=== PATIENT | female | born 1985 | race Caucasian/White ===

== ENCOUNTER → 2016-05-12 | Outpatient (CLI) | payer MEDICAID | LOC: CIMAGING 13:07 | PROVIDERS: ATTEND Obstetrics & Gynecology | DX: N64.59 Other signs and symptoms in breast (principal) | CPT/HCPCS: 76641-PO ==

== ENCOUNTER → 2017-01-15 | Outpatient (CLI) | payer MEDICAID | LOC: FIMAGING 06:52 | PROVIDERS: ATTEND Orthopaedic Surgery | DX: S46.811A Strain of other muscles, fascia and tendons at shoulder and upper arm level, right arm, initial encounter (principal) ==

== ENCOUNTER 2017-04-24 05:47 | Day surgery (SDC) | payer MEDICAID ==
--- NOTE | 2017-04-23 16:07 | GHP ---
[f rep st] PREOP HISTORY AND PHYSICAL DATE OF ADMISSION: 04/24/2017 DATE OF PLANNED PROCEDURE: 04/24/2017. PLANNED PROCEDURE: Right shoulder subacromial decompression. HPI: This is a 31-year-old female, who has had long-standing right shoulder pain. This has failed t o improve with physical therapy, cortisone injections, and time. MRI was obtained, which showed impi ngement anatomy and an inflamed rotator cuff. Decision made to proceed with an arthroscopic rotator cuff debridement and a subacromial decompression. PRIOR MEDICAL HISTORY: None. SURGICAL HISTORY: Ankle arthroscopy with Brostrom repair. MEDICATIONS: None. ALLERGIES: None. SOCIAL HISTORY: She is a nursing clinical director. Does not smoke. Occasional alcohol use. REVIEW OF SYSTEMS: Unremarkable. PHYSICAL EXAM: Healthy-appearing 31-year-old female. VITAL SIGNS: She is 5 feet 9 inches tall, farida ghs 145 pounds. Blood pressure is 120/77, heart rate 76, respiratory rate 14 on room air. Alert and oriented x3. HEENT: Normocephalic, atraumatic. Extraocular muscles intact. NECK: Supple. There is no lymphadenopathy. No JVD. CHEST: Clear to auscultation. CARDIOVASCULAR: Regular rate and r hythm. ABDOMEN: Soft, nontender, nondistended. MUSCULOSKELETAL: Right shoulder shows no obvious a trophy. There is a little tenderness over the AC joint and anteriorly over the rotator interval and long head of the biceps. She has full extension, 160 degrees of forward flexion, 60 degrees external rotation, internal rotation, she can get her hand to L1. Supraspinatus and infraspinatus strength b oth 4/5, limited by pain. Subscapularis 4+/5. She has a positive impingement sign. Negative cross- body adduction sign. 1+ sulcus sign. Negative apprehension sign. IMAGING: MRI is reviewed. Does show some mild-bursal sided fraying of the cuff, no full-thickness t ear. I do not detect a labral tear. There is a type 2 acromion with impingement anatomy. ASSESSMENT: Right shoulder impingement. PLAN: I recommend proceeding with an arthroscopic labral rotator cuff debridement, subacromial decom pression. Risks and benefits were described including continued pain, postoperative stiffness. She understands these risks, wished to proceed. [facility] /[id number]/MODL
[2017-04-24] MEDS ORDERED: ceFAZolin 2 GM/SWFI 2 GM/20 ML SYR IVP ONE (06:11)
[2017-04-24 06:22] VITALS: PULSE 70
--- NOTE | 2017-04-24 06:53 | PDHPUP ---
History & Physical Update H&P update statement: This history and physical update is based on an assessment of the patient which was completed after admission or registration (within 24 hours), but prior to the surgery/procedure. H&P update: H&P reviewed & patient examined, no change in patient's condition since H&P completed
[2017-04-24] MEDS ORDERED: BUPIVACAINE/EPI 0.5% 30 ML SDV ONE (06:59)
[2017-04-24] MEDS ORDERED: LIDO/EPI 1% **for epidural** 30 ML SDV ONE (07:00)
--- NOTE | 2017-04-24 07:02 | PDANEPAE ---
ANE History of Present Illness Patient presents for R shoulder decompression ANE Past Medical History - Cardiovascular History Hx Hypertension: No Hx Arrhythmias: Yes Hx Chest Pain: No Hx Coronary Artery / Peripheral Vascular Disease: No Hx CHF / Valvular Disease: No Hx Palpitations: No Cardiovascular History Comment: occ pvc's- has been worked up by cards - Pulmonary History Hx COPD: No Hx Asthma/Reactive Airway Disease: No Hx Recent Upper Respiratory Infection: No Hx Oxygen in Use at Home: No Hx Sleep Apnea: No Sleep Apnea Screening Result - Last Documented: Negative - Neurologic History Hx Cerebrovascular Accident: No Hx Seizures: No Hx Dementia: No - Endocrine History Hx Diabetes: No - Renal History Hx Renal Disorders: No - Liver History Hx Hepatic Disorders: No - Neurological & Psychiatric Hx Hx Neurological and Psychiatric Disorders: No - Cancer History Hx Cancer: No - Congenital Disorder History Hx Congenital Disorders: No - GI History Hx Gastrointestinal Disorders: No - Other Health History Other Health History: none - Chronic Pain History Chronic Pain: No - Surgical History Prior Surgeries: right ankle reconstruction. tonsillectomy. optic nerve surgery x2 ANE Review of Systems Review of Systems: - Exercise capacity METS (RN): 4 METS ANE Patient History - Allergies Allergies/Adverse Reactions: No Known Allergies Allergy (Verified 04/24/17 06:42) - Home Medications Home medications: home medication list seen and reviewed Home Medications: NK [No Known Home Meds] 04/16/17 [Last Taken Unknown] - NPO status NPO Status: no food or drink >8 hours NPO Since - Liquids (Date): 04/23/17 NPO Since - Liquids (Time): 20:30 NPO Since - Solids (Date): 04/23/17 NPO Since - Solids (Time): 19:30 - Anes Hx Anes Hx: no prior problems, post operative nausea, post operative nausea and vomiting - Smoking Hx Smoking Status: Never smoked - Family Anes Hx Family Hx Anesthesia Complications: none ANE Labs/Vital Signs - Vital Signs Blood Pressure: 103/67 Heart Rate: 70 Respiratory Rate: 16 O2 Sat (%): 94 Height: 175.26 cm Weight: 68.039 kg ANE Physical Exam - Airway Neck exam: FROM Mallampati Score: Class 2 Mouth exam: normal dental/mouth exam - Pulmonary Pulmonary: no respiratory distress - Cardiovascular Cardiovascular: regular rate and rhythym - ASA Status ASA Status: I ANE Anesthesia Plan Anesthesia Plan: GA w LMA (RBA discussed)
[2017-04-24] MEDS ORDERED: fentaNYL 100 MCG/2 ML INJ ONE ×2 (07:06→07:55)
[2017-04-24] MEDS ORDERED: PROPOFOL 200 MG/20 ML VIAL ONE (07:07)
[2017-04-24] MEDS ORDERED: PROPOFOL/EMULSION 500 MG/50 ML BOTTLE IV ONE (07:07)
[2017-04-24] MEDS ORDERED: LIDOCAINE 2% 5 ML SDV ONE (07:12)
[2017-04-24] MEDS ORDERED: LR 1,000 ML IV ONE (07:12)
[2017-04-24] MEDS ORDERED: ONDANSETRON 4 MG/2 ML VIAL ONE (07:33)
[2017-04-24] MEDS ORDERED: DEXAMETHASONE 4 MG/ML VIAL ONE (07:33)
[2017-04-24] MEDS ORDERED: OXYCODONE/APAP 5/325 TAB PO PRN (08:15)
[2017-04-24] MEDS ORDERED: ONDANSETRON 4 MG/2 ML VIAL IVP PRN (08:15)
[2017-04-24] MEDS ORDERED: NALOXONE HCL 0.4 MG/ML INJ IVP PRN (08:15)
[2017-04-24] MEDS ORDERED: fentaNYL 100 MCG/2 ML INJ IVP PRN (08:15)
[2017-04-24] MEDS ORDERED: HYDROCODONE/APAP 5/325 TAB PO PRN (08:15)
[2017-04-24] MEDS ORDERED: LR 500 ML IV PRN (08:15)
--- NOTE | 2017-04-24 08:15 | POSTOPPROG ---
Post Op Note Date of Operation: 04/24/17 Surgeon: Adis Cali Vice President Media Relations: NINI Mcbride Anesthesia: GET(General Endotracheal) Pre-op Diagnosis: RT shoulder impingement Post-op Diagnosis: same Procedure: 1. Arthroscopic labral debridement 2. SAD Inf/Abcess present in the surg proc area at time of surgery?: No EBL: Minimal Complications: none
--- NOTE | 2017-04-24 08:50 | POSTANESTH ---
Post Anesthetic Evaluation Cardiovascular Status: Similar to Pre-Op Cond Respiratory Status: Similar to Pre-op Cond. Level of Consciousness/Mental Status: Can Participate in Eval Pain Control: Adequate, Prn Tx Ordered Nausea/Vomiting Control: Adequate, Prn Tx Ordered Complications Possibly Related to Anesthesia: None Noted
[2017-04-24 09:16] VITALS: TEMP 97.5
--- NOTE | 2017-04-24 09:25 | GOP ---
[f rep st] OPERATIVE REPORT DATE OF OPERATION: 04/24/2017 SURGEON: Adis Clai MD C D STRIPPER: Stephen Dhaliwal. ANESTHESIA: General. PREOPERATIVE DIAGNOSIS: Right shoulder impingement. POSTOPERATIVE DIAGNOSIS: Right shoulder impingement. PROCEDURE PERFORMED: 1. Arthroscopic labral debridement. 2. Subacromial decompression. 3. Rotator cuff debridement. FINDINGS: DESCRIPTION OF PROCEDURE: After appropriate informed consent was obtained patient taken to the opera ting room, placed supine on the operating table. Time-out was performed. Patient was identified, co rrect site was identified. She received 2 g of Ancef preoperatively. Following the induction of gen eral endotracheal tube anesthesia she was positioned in the beach chair position with all bony promin ences well padded. Right upper extremity was prepped and draped usual sterile fashion. I instilled 30 mL 1% lidocaine with epinephrine and 30 mL of normal saline through the standard posterior portal. I made a small jacy incision and introduced the camera through the standard posterior portal and th en obtained an anterior portal under direct visualization and placed a 4.5 mm plastic working cannula through there. The labrum showed some mild tearing just anterior and inferior to the biceps tendon. There was also another area at approximately the 7 o'clock position posterior inferiorly that was t orn with a loose piece of tissue. This was debrided back with a motorized shaver. Looking at the un dersurface of the rotator cuff there was a small partial-thickness tear of the anterior fibers of the supraspinatus. I debrided this from the undersurface with the motorized shaver. Biceps tendon was intact. The remainder of the rotator cuff looked in good shape. The articular cartilage on the william ral head and the glenoid was also without injury. I repositioned the camera in the subacromial space and obtained a standard lateral portal under direct visualization. She had extensive synovitis and bursitis in that subacromial space. I debrided back with a motorized shaver and electrocautery dilcia kulkarni. The acromial side of the rotator cuff was in good shape without evidence of tearing. I debrided back the synovium and then performed a subacromial decompression with the motorized bur. Instruments were withdrawn. Portal incisions were closed with 2-0 nylon. I instilled 30 mL of 0.5% Marcaine wi th epinephrine in the shoulder joint. Sterile dressing and a sling were applied. Patient was awaken ed from anesthesia, taken to the recovery room in satisfactory condition. There were no immediate in traoperative complications. Stephen Dhaliwal's assistance was required throughout the entire case. COMPLICATIONS: None. DRAINS: None. HISTORY: This is a 31-year-old female, who had longstanding right shoulder pain that has failed to i mprove with conservative management including therapy and cortisone injections. Decision was made to proceed with a cuff debridement and a subacromial decompression. /[id number]/MODL
[2017-04-24 10:22] VITALS: BP 106/66; RESP 12; O2SAT 98
== END 2017-04-24 10:20 | disposition home or self-care (01) ==
LOC: FSGY 05:47
PROVIDERS: ATTEND Orthopaedic Surgery
PROC: 0LQ14ZZ Repair Right Shoulder Tendon, Percutaneous Endoscopic Approach (ICD-10-PCS; principal; 2017-04-24 07:15)
PROC: 0MB14ZZ Excision of Right Shoulder Bursa and Ligament, Percutaneous Endoscopic Approach (ICD-10-PCS; principal; 2017-04-24 07:15)
DX: M25.811 Other specified joint disorders, right shoulder (principal)
CPT/HCPCS: J0171; J0690; J1100; J2405; J2704; J3010

== ENCOUNTER → 2017-05-29 | Outpatient (CLI) | payer MEDICAID | LOC: FIMAGING 18:04 | PROVIDERS: ATTEND Orthopaedic Surgery | DX: M25.511 Pain in right shoulder (principal); Z98.890 Other specified postprocedural states ==

== ENCOUNTER 2017-08-09 03:38 | Observation (INO) | payer MEDICAID ==
[2017-08-09] MEDS ORDERED: NS 1,000 ML IV ONE (03:51)
--- NOTE | 2017-08-09 03:51 | EDPHY ---
H & P Stated Complaint: PALPITATION, STARTED YEST Time Seen by Provider: 08/09/17 03:42 HPI/ROS: HPI CHIEF COMPLAINT: Palpitations since yesterday. 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 She reports yesterday she felt some lightheadedness and some palpitations she thought her heart rate was low in the 40s yesterday she woke up around 230 this morning as her son woke up and she felt like her heart was racing with fast palpitations and lightheadedness. She did not have any chest pain or shortness of breath she denies any pleuritic pain. Denies recent illness, denies fever. She has not had any vomiting or diarrhea. She decided come the emergency room due the palpitations and lightheadedness. She currently does not feel them. Upon arrival to the emergency room she is noted to be in sinus rhythm a heart rate in the 60s, blood pressure 134/80 and pulse ox 98% on room air she is afebrile. Past Medical History: Denies significant medical history that she takes daily medications for Past Surgical History: Right shoulder surgery Social History: He denies drugs alcohol tobacco. Works as an adviser sales History: Denies any significant cardiovascular history in her family ROS REVIEW OF SYSTEMS: A comprehensive 10 point review of systems is otherwise negative aside from elements mentioned in the history of present illness. Exam Constitutional appears well nontoxic no acute distress, triage nursing summary reviewed, vital signs reviewed, awake/alert. Eyes normal conjunctivae and sclera, EOMI, PERRLA. HENT normal inspection, atraumatic, moist mucus membranes, no epistaxis, neck supple/ no meningismus, no raccoon eyes. Respiratory clear to auscultation bilaterally, normal breath sounds, no respiratory distress, no wheezing. Cardiovascular no murmur on exam, rate normal, regular rhythm, no murmur, no edema, distal pulses normal. Gastrointestinal soft, non-tender, no rebound, no guarding, normal bowel sounds, no distension, no pulsatile mass. Genitourinary no CVA tenderness. Musculoskeletal no midline vertebral tenderness, full range of motion, no calf swelling, no tenderness of extremities, no meningismus, good pulses, neurovascularly intact. Skin pink, warm, & dry, no rash, skin atraumatic. Neurologic awake, alert and oriented x 3, AAOx3, moves all 4 extremities equally, motor intact, sensory intact, CN II-XII intact, normal cerebellar, normal vision, normal speech. Psychiatric normal mood/affect. Heme/Lymph/Immune no lymphadenopathy. Differential diagnosis includes but is not limited to: Palpitations, cardiac arrhythmia, abnormal thyroid, electrolyte disturbance, dehydration, SVT, bradycardia ACS, atypical chest pain, pneumothorax, pneumonia, pulmonary embolism, aortic dissection, congestive heart failure, tumor, musculoskeletal pain, esophageal pain, GERD, peptic ulcer disease, pancreatitis Medical Decision Making: Plan for this patient IV establishment blood draw, check electrolytes, check magnesium, check EKG and chest x-ray, check thyroid, test and re-evaluate. Re-evaluation: EKG interpretation by me on record in [facility] system. Impression time of EKG 3:50 a.m., this is sinus rhythm rate of 67 there is no acute ischemia appreciated. No ST elevation no ST depression no significant T-wave abnormalities. No prolonged intervals. Unremarkable EKG. ED x-ray chest one view negative for acute cardiopulmonary disease. Patient been monitored here for multiple hours there has been no signs of cardiac arrhythmia on the monitor. Her current heart rate is 69, blood pressure 110/85, pulse ox 90% on room air. She has been resting comfortably she has no chest pain or shortness of breath. Her EKG is nonischemic no signs of cardiac arrhythmia. Her troponin is negative D-dimer is clean. Chest x-ray is unremarkable. I do recommend she follows up with Cardiology on outpatient basis for Holter monitor for palpitations. Additionally she understands return emergency room she develops worsening chest pain shortness of breath or fever. Source: Patient - Personal History LMP (Females 10-55): Unknown Current Tetanus Diphtheria and Acellular Pertussis (TDAP): Yes - Medical/Surgical History Hx Asthma: No Hx Chronic Respiratory Disease: No Hx Diabetes: No Hx Cardiac Disease: No Hx Renal Disease: No Hx Cirrhosis: No Hx Alcoholism: No Hx HIV/AIDS: No Hx Splenectomy or Spleen Trauma: No Other PMH: R SHOULDER RECONST, R ANKLE SX 2012, OPTIC NERVE SX PATRICIA 2010, TONSIL - Social History Smoking Status: Never smoked Constitutional: Initial Vital Signs Temperature (C) 36.8 C 05/27/18 03:42 Heart Rate 76 08/09/17 03:42 Respiratory Rate 16 08/09/17 03:42 Blood Pressure 135/80 H 08/09/17 03:42 O2 Sat (%) 98 08/09/17 03:42 O2 Delivery Mode Room Air Allergies/Adverse Reactions: No Known Allergies Allergy (Verified 04/24/17 06:42) Home Medications: Medication Instructions Recorded NK [No Known Home Meds] 04/16/17 Medical Decision Making - Data Points Laboratory Results: Laboratory Results 08/09/17 03:50 08/09/17 03:50 08/09/17 08/09/17 08/09/17 03:50 03:50 03:50 WBC RBC Hgb Hct MCV MCH MCHC RDW Plt Count MPV Neut % (Auto) Lymph % (Auto) Hardy % (Auto) Eos % (Auto) Baso % (Auto) Nucleat RBC Rel Count Absolute Neuts (auto) Absolute Lymphs (auto) Absolute Monos (auto) Absolute Eos (auto) Absolute Basos (auto) Absolute Nucleated RBC Immature Gran % Immature Gran # PT 12.9 SEC SEC (12.0-15.0) INR 0.95 (0.83-1.16) APTT 27.0 SEC SEC (23.0-38.0) D-Dimer < 0.27 ug/mLFEU ug/mLFEU (0.00-0.50) Sodium 143 mEq/L mEq/L (135-145) Potassium 3.8 mEq/L mEq/L (3.3-5.0) Chloride 104 mEq/L mEq/L (97-110) Carbon Dioxide 24 mEq/l mEq/l (22-31) Anion Gap 15 mEq/L mEq/L (8-16) BUN 10 mg/dL mg/dL (7-23) Creatinine 0.6 mg/dL mg/dL (0.6-1.0) Estimated GFR > 60 Glucose 92 mg/dL mg/dL (70-100) Calcium 8.7 mg/dL mg/dL (8.5-10.4) Magnesium 1.9 mg/dL mg/dL (1.6-2.3) Total Bilirubin 1.0 mg/dL mg/dL (0.1-1.4) Conjugated Bilirubin 0.3 mg/dL mg/dL (0.0-0.5) Unconjugated Bilirubin 0.7 mg/dL mg/dL (0.0-1.1) AST 17 IU/L IU/L (14-46) ALT 28 IU/L IU/L (9-52) Alkaline Phosphatase 43 IU/L IU/L (38-126) Creatine Kinase 80 IU/L IU/L (0-156) CK-MB (CK-2) Fraction 0.53 ng/mL ng/mL (0.00-3.19) Troponin I < 0.012 ng/mL ng/mL (0.000-0.034) NT-Pro-B Natriuret Pep 145 pg/mL H pg/mL (0-125) Total Protein 7.4 g/dL g/dL (6.3-8.2) Albumin 4.3 g/dL g/dL (3.5-5.0) Lipase 142 IU/L IU/L (23-300) TSH 2.320 uIU/mL uIU/mL (0.465-4.680) Beta HCG, Qual NEGATIVE 08/09/17 03:50 WBC 9.30 10^3/uL 10^3/uL (3.80-9.50) RBC 4.73 10^6/uL 10^6/uL (4.18-5.33) Hgb 14.3 g/dL g/dL (12.6-16.3) Hct 42.8 % % (38.0-47.0) MCV 90.5 fL fL (81.5-99.8) MCH 30.2 pg pg (27.9-34.1) MCHC 33.4 g/dL g/dL (32.4-36.7) RDW 13.5 % % (11.5-15.2) Plt Count 281 10^3/uL 10^3/uL (150-400) MPV 11.3 fL fL (8.7-11.7) Neut % (Auto) 48.7 % % (39.3-74.2) Lymph % (Auto) 36.1 % % (15.0-45.0) Hardy % (Auto) 9.9 % % (4.5-13.0) Eos % (Auto) 4.4 % % (0.6-7.6) Baso % (Auto) 0.8 % % (0.3-1.7) Nucleat RBC Rel Count 0.0 % % (0.0-0.2) Absolute Neuts (auto) 4.53 10^3/uL 10^3/uL (1.70-6.50) Absolute Lymphs (auto) 3.36 10^3/uL H 10^3/uL (1.00-3.00) Absolute Monos (auto) 0.92 10^3/uL H 10^3/uL (0.30-0.80) Absolute Eos (auto) 0.41 10^3/uL H 10^3/uL (0.03-0.40) Absolute Basos (auto) 0.07 10^3/uL 10^3/uL (0.02-0.10) Absolute Nucleated RBC 0.00 10^3/uL 10^3/uL (0-0.01) Immature Gran % 0.1 % % (0.0-1.1) Immature Gran # 0.01 10^3/uL 10^3/uL (0.00-0.10) PT INR APTT D-Dimer Sodium Potassium Chloride Carbon Dioxide Anion Gap BUN Creatinine Estimated GFR Glucose Calcium Magnesium Total Bilirubin Conjugated Bilirubin Unconjugated Bilirubin AST ALT Alkaline Phosphatase Creatine Kinase CK-MB (CK-2) Fraction Troponin I NT-Pro-B Natriuret Pep Total Protein Albumin Lipase TSH Beta HCG, Qual Medications Given: Discontinued Medications Sodium Chloride (Ns) 1,000 mls @ 0 mls/hr IV EDNOW ONE; Wide Open PRN Reason: Protocol Stop: 08/09/17 03:52 Last Admin: 08/09/17 03:56 Dose: 1,000 mls Departure - Departure Disposition: Home, Routine, Self-Care Clinical Impression: Heart palpitations Condition: Good Instructions: Heart Palpitations (ED) Additional Instructions: 1. Follow up with Cardiology. 2. Return to the emergency room if you have any worsening symptoms questions or concerns. Referrals: Monica Brown MD [Primary Care Provider] - As per Instructions Ward Vasquez MD [Medical Doctor] - As per Instructions
--- NOTE | 2017-08-09 03:52 | CPEKG ---
Heart Rate: 67 RR Interval: 896 P-R Interval: 136 QRSD Interval: 82 QT Interval: 408 QTC Interval: 431 P [place]: 55 QRS [place]: 43 T Wave [place]: 22 EKG Severity - NORMAL ECG - EKG Impression: SINUS RHYTHM Electronically Signed By: Ramon Hernandez 09-Aug-2017 06:48:32
[2017-08-09 04:01] LABS: PLATELET COUNT 281 10^3/uL (150-400)
[2017-08-09 04:09] LABS: INR 0.95 (0.83-1.16); PROTIME(PATIENT) 12.9 SEC (12.0-15.0)
[2017-08-09 04:30] LABS: CREATINE KINASE 80 IU/L (0-156)
[2017-08-09] MEDS ORDERED: ONDANSETRON 4 MG/2 ML VIAL IVP PRN (06:02)
[2017-08-09] MEDS ORDERED: ACETAMINOPHEN 325 MG TAB PO PRN (06:02)
[2017-08-09] MEDS ORDERED: ONDANSETRON DISINTEGRATING 4 MG TAB PO PRN (06:02)
--- NOTE | 2017-08-09 06:47 | PDGENHP ---
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 Patient was in usual state of good health until yesterday when she experienced a presyncopal episode. She felt lightheaded and like she was going to "black out". Intermittently throughout the day she thought she also noticed fluctuations in her HR. She reports palpating a pulse in the 40s at some point. Then last night she woke up and had recurrence of symptoms so she came to the ED. In the ED her work-up has been unremarkable aside from occasional PVCs on the monitor. History Information - Allergies/Home Medication List Allergies/Adverse Reactions: No Known Allergies Allergy (Verified 04/24/17 06:42) Home Medications: NK [No Known Home Meds] 04/16/17 [Last Taken Unknown] I have personally reviewed and updated: family history, medical history - Past Medical History Additional medical history: PVCs - Surgical History Reports: no pertinent surgical hx - Family History Positive for: CAD - Social History Smoking Status: Never smoked Review of Systems Review of Systems: ROS: 10pt was reviewed & negative except for what was stated in HPI & below Physical Exam Physical Exam: Temp Pulse Resp BP Pulse Ox 36.7 C 62 16 117/67 92 08/09/17 06:35 08/09/17 06:39 08/09/17 06:39 08/09/17 06:39 08/09/17 06:39 Constitutional: no apparent distress, not in pain Eyes: PERRL, EOMI Ears, Nose, Mouth, Throat: moist mucous membranes, no oral mucosal ulcers Cardiovascular: regular rate and rhythym, no murmur, rub, or gallop Gastrointestinal: normoactive bowel sounds, soft, non-tender abdomen Skin: warm, normal color Musculoskeletal: full muscle strength, no muscle tenderness Neurologic: AAOx3, CN II-XII Intact Psychiatric: interacting appropriately, not anxious Lab Data & Imaging Review 08/09/17 03:50 08/09/17 03:50 WBC 9.30 10^3/uL (3.80-9.50) 08/09/17 03:50 RBC 4.73 10^6/uL (4.18-5.33) 08/09/17 03:50 Hgb 14.3 g/dL (12.6-16.3) 08/09/17 03:50 Hct 42.8 % (38.0-47.0) 08/09/17 03:50 MCV 90.5 fL (81.5-99.8) 08/09/17 03:50 MCH 30.2 pg (27.9-34.1) 08/09/17 03:50 MCHC 33.4 g/dL (32.4-36.7) 08/09/17 03:50 RDW 13.5 % (11.5-15.2) 08/09/17 03:50 Plt Count 281 10^3/uL (150-400) 08/09/17 03:50 MPV 11.3 fL (8.7-11.7) 08/09/17 03:50 Neut % (Auto) 48.7 % (39.3-74.2) 08/09/17 03:50 Lymph % (Auto) 36.1 % (15.0-45.0) 08/09/17 03:50 Mckenzie % (Auto) 9.9 % (4.5-13.0) 08/09/17 03:50 Eos % (Auto) 4.4 % (0.6-7.6) 08/09/17 03:50 Baso % (Auto) 0.8 % (0.3-1.7) 08/09/17 03:50 Nucleat RBC Rel Count 0.0 % (0.0-0.2) 08/09/17 03:50 Absolute Neuts (auto) 4.53 10^3/uL (1.70-6.50) 08/09/17 03:50 Absolute Lymphs (auto) 3.36 10^3/uL (1.00-3.00) H 08/09/17 03:50 Absolute Monos (auto) 0.92 10^3/uL (0.30-0.80) H 08/09/17 03:50 Absolute Eos (auto) 0.41 10^3/uL (0.03-0.40) H 08/09/17 03:50 Absolute Basos (auto) 0.07 10^3/uL (0.02-0.10) 08/09/17 03:50 Absolute Nucleated RBC 0.00 10^3/uL (0-0.01) 08/09/17 03:50 Immature Gran % 0.1 % (0.0-1.1) 08/09/17 03:50 Immature Gran # 0.01 10^3/uL (0.00-0.10) 08/09/17 03:50 PT 12.9 SEC (12.0-15.0) 08/09/17 03:50 INR 0.95 (0.83-1.16) 08/09/17 03:50 APTT 27.0 SEC (23.0-38.0) 08/09/17 03:50 D-Dimer < 0.27 ug/mLFEU (0.00-0.50) 08/09/17 03:50 Sodium 143 mEq/L (135-145) 08/09/17 03:50 Potassium 3.8 mEq/L (3.3-5.0) 08/09/17 03:50 Chloride 104 mEq/L (97-110) 08/09/17 03:50 Carbon Dioxide 24 mEq/l (22-31) 08/09/17 03:50 Anion Gap 15 mEq/L (8-16) 08/09/17 03:50 BUN 10 mg/dL (7-23) 08/09/17 03:50 Creatinine 0.6 mg/dL (0.6-1.0) 08/09/17 03:50 Estimated GFR > 60 08/09/17 03:50 Glucose 92 mg/dL (70-100) 08/09/17 03:50 Calcium 8.7 mg/dL (8.5-10.4) 08/09/17 03:50 Magnesium 1.9 mg/dL (1.6-2.3) 08/09/17 03:50 Total Bilirubin 1.0 mg/dL (0.1-1.4) 08/09/17 03:50 Conjugated Bilirubin 0.3 mg/dL (0.0-0.5) 08/09/17 03:50 Unconjugated Bilirubin 0.7 mg/dL (0.0-1.1) 08/09/17 03:50 AST 17 IU/L (14-46) 08/09/17 03:50 ALT 28 IU/L (9-52) 08/09/17 03:50 Alkaline Phosphatase 43 IU/L (38-126) 08/09/17 03:50 Creatine Kinase 80 IU/L (0-156) 08/09/17 03:50 CK-MB (CK-2) Fraction 0.53 ng/mL (0.00-3.19) 08/09/17 03:50 Troponin I < 0.012 ng/mL (0.000-0.034) 08/09/17 03:50 NT-Pro-B Natriuret Pep 145 pg/mL (0-125) H 08/09/17 03:50 Total Protein 7.4 g/dL (6.3-8.2) 08/09/17 03:50 Albumin 4.3 g/dL (3.5-5.0) 08/09/17 03:50 Lipase 142 IU/L (23-300) 08/09/17 03:50 TSH 2.320 uIU/mL (0.465-4.680) 08/09/17 03:50 Beta HCG, Qual NEGATIVE 08/09/17 03:50 Visualized and Interpreted Chest x-ray results: Yes Chest X-Ray results: no infiltrate Visualized and Interpreted EKG results: Yes EKG Interpretation: Positive for: normal sinsus rhythm Assessment & Plan Assessment: 31 yo F p/w presyncope and palpitations. Plan: 1. Presyncope - Associated with occasional palpitations. Work-up thus far unrevealing including normal ECG and TSH. Patient does have history of isolated PVCs, which I can see ongoing on the monitor. She states she previously had a Holter monitor but that the PVC burden was too low to require intervention. - Admit for observation - Monitor on telemetry - Will repeat ECG now - Will ask RN to check BG when symptomatic to rule this out as a contributing factor - Most likely she will need an outpatient event monitor Diet - Regular Code - Full Ppx - Low risk Dispo - Admit under observation status
--- NOTE | 2017-08-09 07:48 | CPEKG ---
Heart Rate: 52 RR Interval: 1154 P-R Interval: 148 QRSD Interval: 78 QT Interval: 436 QTC Interval: 406 P [place]: 47 QRS [place]: 44 T Wave [place]: 11 EKG Severity - OTHERWISE NORMAL ECG - EKG Impression: SINUS RHYTHM EKG Impression: VENTRICULAR PREMATURE COMPLEX EKG Impression: INTERPOLATED VENTRICULAR PREMATURE COMPLEX Electronically Signed By: Kush Baird 10-Aug-2017 10:18:57
[2017-08-09] MEDS ORDERED: DILTIAZEM 30 MG TAB PO ONE (10:47)
--- NOTE | 2017-08-09 10:57 | ECHO ---
[email or web address] [address] [address] Main: [phone] Fax: Transthoracic Echocardiogram Name: JOANNE HAWK MR#: [id number] Study Date: 08/09/2017 Study Time: 09:03 AM Date of : 1985 Age: 31 year(s) Height: 175.3 cm (69 in.) Weight: 72.58 kg (160 lb.) BSA: 1.88 m2 Gender: Female Examination: Echo Indication: PRESYNCOPE Image Quality: Adequate Contrast: Requested by: Ene Wang BP: / Heart Rate: Rhythm: Indication: PRESYNCOPE Procedure Staff Precision Machinist: Amanda Nguyen [facility] Reading Physician: Kush Baird MD Requesting Provider: Conclusions: Normal size left ventricle. Normal global systolic LV function. EF is 64 %. Mild mitral valve regurgitation is present. Mild tricuspid regurgitation is present. Measurements: Chambers Valvular Assessment AV/MV Valvular Assessment TV/PV Normal Normal Normal Name Value Range Name Value Range Name Value Range Ao Mireya (2D): 2.5 cm (1.4 cm-2.6 AV Vmax: 1.40 m/s (1 m/s-1.7 TR Vmax: 1.97 mm/s ( - ) cm) m/s) TR PGmax: 16 mmHg ( - ) IVSd (2D): 0.8 cm (0.6 cm-1.1 AV meanP mmHg ( - ) syst. PAP: 21 mmHg ( - ) cm) LEXI (VTI): 2.7 cm ( - ) PV Vmax: 0.94 m/s (0.6 m/s-0.9 LVDd (2D): 4.9 cm (3.9 cm-5.3 MV E Vmax: 0.91 m/s ( - ) m/s) cm) MV A Vmax: 0.71 m/s ( - ) PV PGmax: 4 mmHg ( - ) LVDs (2D): 3.0 cm (2.1 cm-4 MV E/A: 1.28 ( - ) cm) MV PHT: 0.076 s ( - ) LVPWd (2D): 0.8 cm ( - ) MVA (PHT): 2.9 s ( - ) LVOTd 2.1 cm 2.1 cm mm LVEF (BP): 64 % (>=55 %) RVDd(2D): 3.0 cm (1.9 cm-3.8 cmmm) Continued Measurements: Chambers Valvular Assessment AV/MV Valvular Assessment TV/PV Name Value Name Value Name Value LADs: 3.5 cm MV DecTime: 248 m/s CVP (est.): 5 mmHg LADs Lon.2 cm MV E' Septal: 0.08 m/s Patient: JOANNE HAWK Study Date: 08/09/2017 Page 1 of 2 09:03 AM LA Area: 16.7 cm2 MV E/E' Septal: 10.70 RA Area: 19.1 cm2 MV E/E' Lateral: 5.90 Additional Vessels Name Value Ao Ascendin.8 cm Inferior Vena Cava: 1.7 cm Findings: Left Ventricle: Normal size left ventricle. No LV hypertrophy. Normal global systolic LV function. EF is 64 %. No regional wall motion abnormality. Normal diastolic LV function. Right Ventricle: Normal size right ventricle. Normal RV function. Left Atrium: The left atrium is normal in size. Right Atrium: The right atrium is normal in size. Mitral Valve: The mitral valve is normal in appearance and function. Mild mitral valve regurgitation is present. No mitral stenosis is present. Aortic Valve: The aortic valve is normal in appearance and function. There is no significant aortic valve regurgitation. No aortic valve stenosis is present. Tricuspid Valve: The tricuspid valve is normal in appearance and function. Mild tricuspid regurgitation is present. The pulmonary artery pressure is normal. Right ventricular systolic pressure measures 21mmHg. Pulmonic Valve: The pulmonic valve is normal in appearance and function. There is no pulmonic regurgitation seen. Aorta: The aorta is normal. Normal size aortic root measuring 2.5 cm. Normal size ascending aorta measuring 2.8 cm. IVC: The IVC is normal sized. Pericardium: No pericardial effusion. No pleural effusion. (No Signature Object) Patient: JOANNE HAWK Study Date: 08/09/2017 Page 2 of 2 09:03 AM [id number]
[2017-08-09 11:40] VITALS: BP 100/59
--- NOTE | 2017-08-09 15:10 | ASMTCMCOM ---
CM Note CM Note Notes: Pt is a 31 y/o female admitted for pre-syncope. Pt does not have any identifiable needs at this time. No therapies ordered. CM available for changes. Plan: Independent Date Signed: 08/09/2017 03:10 PM Electronically Signed By:CHU Colon
--- NOTE | 2017-08-09 16:52 | GDS ---
[f rep st] DISCHARGE SUMMARY DISCHARGE DIAGNOSES: 1. Lightheadedness and presyncopal symptoms with unremarkable workup in this admission. 2. Frequent premature ventricular contractions. PROCEDURES: 1. 08/09/2017: Chest x-ray, which shows nothing remarkable. 2. Serial EKGs. 3. Echocardiogram with normal left ventricular ejection fraction, mild mitral regurgitation, mild tr icuspid regurgitation. CONSULTATIONS: Cardiology. BRIEF HISTORY: Please see dictated H and P for complete details. In brief, the patient is a 31-year -old female with a history of PVCs and pseudotumor cerebri status post fenestration procedure for pap illedema, who presented with lightheadedness and tunnel vision as well as presyncope. She was found to have PVCs on monitoring. The patient will be seen by Cardiology today and then can be discharged to home for outpatient followup. We reviewed that the workup has been really unremarkable. PHYSICAL EXAM: VITAL SIGNS: On day of discharge, blood pressure 120/84, heart rate of 61, respirati ons 15, O2 saturation 95% on room air, temp of 98.4 degrees Fahrenheit. GENERAL: She is a pleasant f emale in no apparent distress. HEENT: Normocephalic, atraumatic. HEART: Regular rate and rhythm. LUNGS: Clear. SKIN: Warm and dry. PSYCH: Normal mood and affect. CBC with WBC 9.3, hemoglobin 14.3, hematocrit 42.8, platelet count 281. BMP was sodium 143, potassiu m 3.8, chloride 104, CO2 24, BUN 10, creatinine 0.6, glucose 92. NT proBNP of 145. TSH of 2.32. RESULTS PENDING: Cardiology consult. DIET: Per previous. Please avoid caffeine and alcohol. ACTIVITY: As tolerated. DISCHARGE MEDICATIONS: Please see med reconciliation. The patient has been started on short-acting dilt at 15 mg p.o. q.6 hours. This may be taken on a p.r.n. basis. DISCHARGE INSTRUCTIONS: 1. Okay to discharge today. 2. Schedule outpatient stress testing. 3. Follow up with Cardiology in 1 week's time. /[id number]/MODL
[2017-08-09] MEDS ORDERED: DILTIAZEM 30 MG TAB PO SCH (17:00)
== END 2017-08-09 15:53 | disposition home or self-care (01) ==
LOC: F3N 06:36
PROVIDERS: ADMIT Student in an Organized Health Care Education/Training Program; ATTEND Student in an Organized Health Care Education/Training Program
DX: R42 Dizziness and giddiness (principal); R55 Syncope and collapse; I49.3 Ventricular premature depolarization
CPT/HCPCS: 71045; 93005; 93306; G0378

== ENCOUNTER 2018-04-30 00:02 | Emergency (ER) | payer MEDICAID ==
[2018-04-30] MEDS ORDERED: NS 1,000 ML IV ONE (00:28)
--- NOTE | 2018-04-30 00:28 | EDPHY ---
H & P Stated Complaint: RLQ abd pain started around 1900 Time Seen by Provider: 04/30/18 00:28 HPI/ROS: HPI CHIEF COMPLAINT: Right lower quadrant abdominal pain. HISTORY OF PRESENT ILLNESS: This patient 32-year-old female, presents emergency room with right lower quadrant abdominal pain. She reports to me pain started around 6:00 p.m.. She has associated nausea but no vomiting. No diarrhea no fever. Denies chest pain or shortness of breath. Denies urinary symptoms or back pain. Main complaint right lower quadrant abdominal pain. Progressively getting worse. It is now 12 30 at night. Describes a dull ache right lower quadrant. No adnexal pain. Past Medical History: Denies significant medical history except for papilledema Past Surgical History: Optic nerves surgery, multiple orthopedic surgeries. No abdominal surgery. Social History: Denies drugs alcohol tobacco. Family History: Noncontributory ROS REVIEW OF SYSTEMS: 10 Systems were reviewed and negative with the exception of the elements mentioned in the history of present illness. Exam Constitutional nontoxic no acute distress triage nursing summary reviewed, vital signs reviewed, awake/alert. Eyes normal conjunctivae and sclera, EOMI, PERRLA. HENT normal inspection, atraumatic, moist mucus membranes, no epistaxis, neck supple/ no meningismus, no raccoon eyes. Respiratory clear to auscultation bilaterally, normal breath sounds, no respiratory distress, no wheezing. Cardiovascular rate normal, regular rhythm, no murmur, no edema, distal pulses normal. Gastrointestinal mild tender palpation right lower quadrant, no rebound, no guarding, normal bowel sounds, no distension, no pulsatile mass. Genitourinary no CVA tenderness. Musculoskeletal no midline vertebral tenderness, full range of motion, no calf swelling, no tenderness of extremities, no meningismus, good pulses, neurovascularly intact. Skin pink, warm, & dry, no rash, skin atraumatic. Neurologic awake, alert and oriented x 3, AAOx3, moves all 4 extremities equally, motor intact, sensory intact, CN II-XII intact, normal cerebellar, normal vision, normal speech. Psychiatric normal mood/affect. Heme/Lymph/Immune no lymphadenopathy. Differential Diagnosis: Differential diagnosis includes but is not limited to and in no particular order: Bowel obstruction, appendicitis, gallbladder disease, diverticulitis, colitis, enteritis, perforated viscus, gastritis, GERD , esophagitis, urinary tract infection, pyelonephritis, kidney stones Medical Decision Making: Plan for this patient IV establishment IV fluid bolus , IV Zofran nausea declined pain medicine IV fluids, basic blood work, CT scan abdomen pelvis with IV contrast rule out acute appendicitis. Re-evaluation: CT scan abdomen pelvis with IV contrast faxed to me by direct direct Radiology at 2:02 a.m., This shows a normal appendix nonspecific 1.6 cm subcapsular hypodensity along the posterior segment of the right lobe of the liver. Recommend follow-up surveillance. Also there is a 3.6 cm oval hypodense focus in the left adnexa most consistent with ovarian follicular cyst 0352: Updated patient about CT results and blood work. Agrees for pelvic ultrasound to help delineate her abdominal pain. Help delineate 3.6 cm focus in the left adnexa possibly ruptured ovarian cyst. The appendix is normal on the CT scan. Ultrasound of the pelvis bilateral ovarian cyst, complex on the right simple on the left. Mild amount of free fluid. Good blood flow to both ovaries Patient's ultrasound shows ovarian cyst. fluid in the pelvis. Return precautions discussed with the patient she understands return emergency room she develops worsening abdominal pain, pelvic pain, fever, vomiting. Her cause of abdominal pain this emergency room visit is ovarian cyst rupture. I do recommend she follows up with OBGYN OBGYN referral provided for her. Her CT scan abdomen pelvis did not show any evidence of acute appendicitis. Her appendix was visualized and normal. Source: Patient - Personal History LMP (Females 10-55): 8-14 Days Ago Current Tetanus/Diphtheria Vaccine: Yes Current Tetanus Diphtheria and Acellular Pertussis (TDAP): Yes - Medical/Surgical History Hx Asthma: No Hx Chronic Respiratory Disease: No Hx Diabetes: No Hx Cardiac Disease: No Hx Renal Disease: No Hx Cirrhosis: No Hx Alcoholism: No Hx HIV/AIDS: No Hx Splenectomy or Spleen Trauma: No Other PMH: R SHOULDER RECONST, R ANKLE SX 2012, OPTIC NERVE SX PATRICIA 2010, TONSIL - Social History Smoking Status: Never smoked Constitutional: Initial Vital Signs Temperature (C) 36.9 C 04/30/18 00:04 Heart Rate 73 04/30/18 00:04 Respiratory Rate 16 04/30/18 00:04 Blood Pressure 124/89 H 04/30/18 00:04 O2 Sat (%) 99 04/30/18 00:04 O2 Delivery Mode Room Air Allergies/Adverse Reactions: No Known Allergies Allergy (Verified 04/30/18 00:06) Home Medications: Medication Instructions Recorded NK [No Known Home Meds] 04/30/18 Medical Decision Making - Data Points Laboratory Results: Laboratory Results 04/30/18 00:29 04/30/18 00:29 04/30/18 04/30/18 04/30/18 01:58 00:29 00:29 WBC RBC Hgb Hct MCV MCH MCHC RDW Plt Count MPV Neut % (Auto) Lymph % (Auto) [place] % (Auto) Eos % (Auto) Baso % (Auto) Nucleat RBC Rel Count Absolute Neuts (auto) Absolute Lymphs (auto) Absolute Monos (auto) Absolute Eos (auto) Absolute Basos (auto) Absolute Nucleated RBC Immature Gran % Immature Gran # Sodium 137 mEq/L mEq/L (135-145) Potassium 4.0 mEq/L mEq/L (3.5-5.2) Chloride 104 mEq/L mEq/L (97-110) Carbon Dioxide 24 mEq/l mEq/l (22-31) Anion Gap 9 mEq/L mEq/L (6-14) BUN 19 mg/dL mg/dL (7-23) Creatinine 0.8 mg/dL mg/dL (0.6-1.0) Estimated GFR > 60 Glucose 101 mg/dL H mg/dL (70-100) Calcium 9.6 mg/dL mg/dL (8.5-10.4) Total Bilirubin 0.8 mg/dL mg/dL (0.1-1.4) Conjugated Bilirubin 0.1 mg/dL mg/dL (0.0-0.5) Unconjugated Bilirubin 0.7 mg/dL mg/dL (0.0-1.1) AST 28 IU/L IU/L (14-46) ALT 21 IU/L IU/L (9-52) Alkaline Phosphatase 53 IU/L IU/L (38-126) Total Protein 7.7 g/dL g/dL (6.3-8.2) Albumin 4.6 g/dL g/dL (3.5-5.0) Lipase 142 IU/L IU/L (23-300) Beta HCG, Qual NEGATIVE Urine Color PALE YELLOW Urine Appearance CLEAR Urine pH 6.0 (5.0-7.5) Ur Specific [place] 1.021 (1.002-1.030) Urine Protein NEGATIVE (NEGATIVE) Urine Ketones NEGATIVE (NEGATIVE) Urine Blood NEGATIVE (NEGATIVE) Urine Nitrate NEGATIVE (NEGATIVE) Urine Bilirubin NEGATIVE (NEGATIVE) Urine Urobilinogen NEGATIVE EU EU (0.2-1.0) Ur Leukocyte Esterase NEGATIVE (NEGATIVE) Urine Glucose NEGATIVE (NEGATIVE) 04/30/18 00:29 WBC 13.97 10^3/uL H 10^3/uL (3.80-9.50) RBC 4.91 10^6/uL 10^6/uL (4.18-5.33) Hgb 14.9 g/dL g/dL (12.6-16.3) Hct 44.5 % % (38.0-47.0) MCV 90.6 fL fL (81.5-99.8) MCH 30.3 pg pg (27.9-34.1) MCHC 33.5 g/dL g/dL (32.4-36.7) RDW 13.7 % % (11.5-15.2) Plt Count 298 10^3/uL 10^3/uL (150-400) MPV 12.0 fL H fL (8.7-11.7) Neut % (Auto) 58.8 % % (39.3-74.2) Lymph % (Auto) 29.8 % % (15.0-45.0) [place] % (Auto) 8.4 % % (4.5-13.0) Eos % (Auto) 2.0 % % (0.6-7.6) Baso % (Auto) 0.6 % % (0.3-1.7) Nucleat RBC Rel Count 0.0 % % (0.0-0.2) Absolute Neuts (auto) 8.21 10^3/uL H 10^3/uL (1.70-6.50) Absolute Lymphs (auto) 4.17 10^3/uL H 10^3/uL (1.00-3.00) Absolute Monos (auto) 1.17 10^3/uL H 10^3/uL (0.30-0.80) Absolute Eos (auto) 0.28 10^3/uL 10^3/uL (0.03-0.40) Absolute Basos (auto) 0.09 10^3/uL 10^3/uL (0.02-0.10) Absolute Nucleated RBC 0.00 10^3/uL 10^3/uL (0-0.01) Immature Gran % 0.4 % % (0.0-1.1) Immature Gran # 0.05 10^3/uL 10^3/uL (0.00-0.10) Sodium Potassium Chloride Carbon Dioxide Anion Gap BUN Creatinine Estimated GFR Glucose Calcium Total Bilirubin Conjugated Bilirubin Unconjugated Bilirubin AST ALT Alkaline Phosphatase Total Protein Albumin Lipase Beta HCG, Qual Urine Color Urine Appearance Urine pH Ur Specific [place] Urine Protein Urine Ketones Urine Blood Urine Nitrate Urine Bilirubin Urine Urobilinogen Ur Leukocyte Esterase Urine Glucose Medications Given: Discontinued Medications Sodium Chloride (Ns) 1,000 mls @ 0 mls/hr IV EDNOW ONE; Wide Open PRN Reason: Protocol Stop: 04/30/18 00:29 Last Admin: 04/30/18 00:34 Dose: 1,000 mls Ondansetron HCl (Zofran) 4 mg IVP EDNOW ONE Stop: 04/30/18 00:32 Last Admin: 04/30/18 00:35 Dose: 4 mg Departure - Departure Disposition: Home, Routine, Self-Care Clinical Impression: Ruptured ovarian cyst Abdominal pain Qualifiers: Abdominal location: unspecified location Qualified Code(s): R10.9 - Unspecified abdominal pain Condition: Fair Instructions: Ovarian Cyst (ED), Acute Abdominal Pain (ED), Ruptured Ovarian Cyst (ED) Additional Instructions: 1. Please return emergency room if there is worsening abdominal pain, fever, vomiting 2. Tylenol Motrin for pain 3. Return if worse. 4. Follow up with OBGYN Referrals: Monica Brown MD [Primary Care Provider] - As per Instructions Libra Cary MD [Medical Doctor] - As per Instructions
[2018-04-30] MEDS ORDERED: ONDANSETRON 4 MG/2 ML VIAL IVP ONE (00:31)
[2018-04-30] MEDS ORDERED: IOHEXOL 300 mgI/ML (OMNIPAQUE) 150 ML BTL IV ONE (01:13)
[2018-04-30 02:32] LABS: PLATELET COUNT 298 10^3/uL (150-400)
[2018-04-30 06:37] VITALS: BP 110/79
== END 2018-04-30 06:37 | disposition home or self-care (01) ==
DX: N83.202 Unspecified ovarian cyst, left side (principal); E86.9 Volume depletion, unspecified
CPT/HCPCS: 96374; J2405; Q9967

== ENCOUNTER 2018-05-02 17:17 | Emergency (ER) | payer MEDICAID ==
[2018-05-02] MEDS ORDERED: NS 1,000 ML IV ONE ×2 (17:29→17:42)
[2018-05-02] MEDS ORDERED: ONDANSETRON 4 MG/2 ML VIAL IVP ONE (18:20)
[2018-05-02] MEDS ORDERED: KETOROLAC 15 MG/1 ML SDV IVP ONE (18:48)
--- NOTE | 2018-05-02 19:35 | EDPHY ---
H & P Stated Complaint: rlq abd pain continues with fever today, 101f tympanic, seen FED on Time Seen by Provider: 05/02/18 17:24 HPI/ROS: This patient presents with ongoing right lower quadrant pelvic pain, lightheadedness and low-grade fevers after being diagnosed on April 30 at [facility] emergency department with a ruptured ovarian cyst. After having a CT scan that revealed a normal appearing appendix the patient had ultrasound that revealed right-sided complex ovarian cyst 2.5 x 2.1 x 2.7 cm and a left simple cyst 4 x 2 x 4 cm with good color Doppler for blood flow to both ovaries and a small amount of free fluid in the cul-de-sac. [place] [address] normal H&H and platelets. Basic metabolic panel is also normal at that time her test was negative. ROS: Constitutional: Fevers as mentioned in HPI. She has associated fatigue. HEENT: No URI symptoms. Pulmonary: No dyspnea at baseline. Cardiovascular: Patient feels some dyspnea on exertion today. She also describes positional lightheadedness/orthostatics symptoms without syncope or presyncope. No lower extremity swelling. GI: No upper belly pain. No significant bloating. : No vaginal discharge. No dysuria. No vaginal bleeding. Last menstrual period was normal timing at the end of March. 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 Hx Asthma: No Hx Chronic Respiratory Disease: No Hx Diabetes: No Hx Cardiac Disease: No Hx Renal Disease: No Hx Cirrhosis: No Hx Alcoholism: No Hx HIV/AIDS: No Hx Splenectomy or Spleen Trauma: No Other PMH: R SHOULDER RECONST, R ANKLE SX 2012, OPTIC NERVE SX PATRICIA 2010, TONSIL - Family History Significant Family History: No pertinent family hx, Other (No history of DVT or PE in her family). 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 Other vitals normal General Appearance: Alert, no distress. Eyes: Pupils equal and round no pallor or injection. ENT, Mouth: Mucous membranes moist. Respiratory: There are no retractions, lungs are clear to auscultation. Cardiovascular: Regular rate and rhythm. Gastrointestinal: Normoactive bowel sounds, mild to moderate right lower quadrant tenderness. No upper belly tenderness. Rovsing's is negative. No left lower quadrant tenderness. No guarding. On initial exam she had mild rebound isolated to the right lower quadrant but no rebound elsewhere in her belly Back: No CVA tenderness Neurological: GCS 15 Skin: Warm and dry, no rashes. Musculoskeletal: Neck is supple nontender. Extremities are symmetrical, full range of motion. Psychiatric: Mood and affect are normal DIFFERENTIAL DIAGNOSIS: After history and physical exam differential diagnosis was considered for persistent discomfort from ruptured ovarian cyst, worsening hemoperitoneum, UTI, dehydration Constitutional: Initial Vital Signs Temperature (C) 37.3 C 05/02/18 17:21 Heart Rate 58 L 05/02/18 17:21 Respiratory Rate 18 05/02/18 17:21 Blood Pressure 142/88 H 05/02/18 17:21 O2 Sat (%) 99 05/02/18 17:21 O2 Delivery Mode Room Air Allergies/Adverse Reactions: No Known Allergies Allergy (Verified 04/30/18 00:06) Home Medications: Medication Instructions Recorded Ondansetron Odt [Zofran Odt] 4 - 8 mg PO Q4PRN PRN #4 tab 05/02/18 Medical Decision Making - Diagnostics EKG Interpretation: 12 lead EKG indication bigeminy on the monitor and lightheadedness rule out cardiac ischemia or other significant abnormalities EKG performed at Sinus rhythm with normal intervals, normal axis Overall assessment normal sinus rhythm, possible left atrial enlargement ED Course/Re-evaluation: Patient is placed on a monitor due to her positive orthostatic vital sign changes was noted to have some frequent PVCs and an episode of bigeminy briefly. While the patient has had PVCs in the past and had a Holter monitor documenting this, she is unaware of any prior episode of bigeminy. 2 L normal saline bolus with resolution of orthostatics symptoms and resolution of pulse change from supine to standing. Toradol 15 mg IV with pain resolved down from moderate intensity initially to 1 or 2/10. Zofran with resolution of nausea. Patient reports that she still felt somewhat lightheaded but had no cardiac symptoms-no chest pain the no significant dyspnea and marked improvement her other symptoms prior to discharge home. Labs: Normal CBC with exception of white count slightly over 10,000 normal H&H and platelets, normal basic metabolic panel, normal urine dip and urine is negative. Discussion: Patient here with pain status post ruptured ovarian cyst who has not been taking medications. I counseled regarding low-grade fevers likely attributable to her body ribs or being the splint culinary instructor peritoneum. Not think she has significant hemoperitoneum at this time given lack of anemia and good response to IV fluids. I think that she had dehydration due to her nausea with decreased p. O. Intake and counseled regarding this. She understands need to return emergency department should she developed onset of significant orthostatics symptoms at home after hydration here or other complaints. She declined tramadol or other analgesics will go home with plan to take ibuprofen Tylenol for pain Zofran for nausea if needed. She will follow up with OBGYN. - Data Points Laboratory Results: 05/02/18 17:49 POC Sodium 140 mEq/L mEq/L (135-145) POC Potassium 3.6 mEq/L mEq/L (3.3-5.0) POC Chloride 104.0 mEq/L mEq/L (97-110) POC Total CO2 28 mEq/L mEq/L (22-31) POC BUN 14 mg/dL mg/dL (7-23) POC Creatinine 0.8 mg/dL mg/dL (0.6-1.0) POC Glucose 96 mg/dL mg/dL (70-100) POC Calcium 9.2 mg/dL mg/dL (8.5-10.4) Medications Given: Discontinued Medications Sodium Chloride (Ns) 1,000 mls @ 0 mls/hr IV EDNOW ONE; Wide Open PRN Reason: Protocol Stop: 05/02/18 17:30 Last Admin: 05/02/18 17:45 Dose: 1,000 mls Sodium Chloride (Ns) 1,000 mls @ 0 mls/hr IV ONCE ONE; Wide Open PRN Reason: Protocol Stop: 05/02/18 17:43 Last Admin: 05/02/18 18:24 Dose: 1,000 mls Ketorolac Tromethamine (Toradol) 15 mg IVP EDNOW ONE Stop: 05/02/18 18:49 Last Admin: 05/02/18 18:57 Dose: 15 mg Ondansetron HCl (Zofran) 4 mg IVP EDNOW ONE Stop: 05/02/18 18:21 Last Admin: 05/02/18 18:24 Dose: 4 mg Point of Care Test Results: CBC CBC Collection Date 05/02/18 CBC Collection Time 17:45 WBC 10.34 RBC 4.57 HGB 13.8 HCT 40.6 PLT 250 Neut # 6.12 Neut 59.1 LYMPH # 2.88 LYMPH 27.9 MCV 88.8 Chemistry 05/02/18 17:49 POC Sodium 140 mEq/L mEq/L (135-145) POC Potassium 3.6 mEq/L mEq/L (3.3-5.0) POC Chloride 104.0 mEq/L mEq/L (97-110) POC Total CO2 28 mEq/L mEq/L (22-31) POC BUN 14 mg/dL mg/dL (7-23) POC Creatinine 0.8 mg/dL mg/dL (0.6-1.0) POC Glucose 96 mg/dL mg/dL (70-100) POC Calcium 9.2 mg/dL mg/dL (8.5-10.4) Urine Collection Date 05/02/18 Collection Time 18:30 HCG Results Negative Urine Dip Collection Date 05/02/18 Collection Time 18:35 Specific [place] (1.002-1.030) 1.020 PH (5.0-7.5) 7.0 Leukocytes (Negative) Negative Nitrites (Negative) Negative Protein (Negative) Negative Glucose (Negative) Negative Ketones (Negative) Negative Urobilnogen (0.2-1.0 EU) 0.2 Bilirubin (Negative) Negative Blood (Negative) Negative Departure - Departure Disposition: Home, Routine, Self-Care Clinical Impression: Ruptured ovarian cyst, Nausea, Lightheadedness Condition: Good Instructions: Dehydration (ED), Ruptured Ovarian Cyst (ED) Additional Instructions: Diagnosis: Ruptured ovarian cyst 2. Nausea 3. Lightheadedness Your orthostatic vital sign changes that were initially present resolved with saline hydration. Your labs tonight revealed a normal urinalysis, negative test, normal basic metabolic panel and CBC is normal exception of slight leukocytosis with a white cell count just over 10,000. Plan: Zofran for nausea if needed Plenty fluids Light diet to feel improved Ibuprofen Tylenol for pain as needed Return emergency department for any worsening despite the treatment plan Follow up with her OBGYN physician for any ongoing symptoms despite treatment plan. Referrals: Monica Brown MD [Primary Care Provider] - As per Instructions Eri Brown MD [Medical Doctor] - As per Instructions Prescriptions: Ondansetron Odt [Zofran Odt] 4 - 8 mg PO Q4PRN PRN #4 tab PRN Reason: Vomiting
[2018-05-02 20:05] VITALS: BP 137/66
--- NOTE | 2018-05-02 20:15 | CPEKG ---
Test Reason : OPEN Blood Pressure : / mmHG Vent. Rate : 065 BPM Atrial Rate : 064 BPM P-R Int : 149 ms QRS Dur : 085 ms QT Int : 431 ms P-R-T Axes : 054 026 038 degrees QTc Int : 449 ms Sinus rhythm Probable left atrial enlargement Confirmed by Adarsh Najera ([id number]) on 05/02/2018 8:14:24 PM Referred By: Adarsh Najera Confirmed By:Adarsh Najera
== END 2018-05-02 20:02 | disposition home or self-care (01) ==
LOC: CED 17:17
DX: N83.291 Other ovarian cyst, right side (principal); N83.292 Other ovarian cyst, left side; R11.0 Nausea; R42 Dizziness and giddiness; E86.9 Volume depletion, unspecified
CPT/HCPCS: 80048-ER; 96361-ER; 96374-ER; 96375-ER; 99284-ER; J1885; J2405

== ENCOUNTER 2018-05-06 18:24 | Emergency (ER) | payer MEDICAID ==
[2018-05-06] MEDS ORDERED: diphenhydrAMINE 25 MG CAP PO ONE (19:23)
[2018-05-06] MEDS ORDERED: predniSONE 20 MG TAB PO ONE (19:23)
--- NOTE | 2018-05-06 19:23 | EDPHY ---
H & P Stated Complaint: States mild rash on Mon. increased now trunk,burning sensation Time Seen by Provider: 05/06/18 19:02 HPI/ROS: CHIEF COMPLAINT: Rash HISTORY OF PRESENT ILLNESS: Patient is a 32-year-old female who comes to the emergency department complaining of a diffuse sandpapery rash. She was seen in the ER on the and diagnosed with a ovarian cyst. She was seen again on the for pain control and at that time received the Toradol and Zofran and fluids. Her symptoms were controlled and she was discharged home. The next day however she began to develop a small patch in epigastric area that over the last several days has gradually spread. It is primarily on her trunk but is also more spaced out on her arms and legs. It does not involve her mouth or the palms of her hands or soles of her feet. She has had chills but no fever. She has had sinus congestion and a slight sore throat. No nausea vomiting. No diarrhea. Her previous pelvic pain has resolved. No painful joints. She has been fully immunized. Severity: Moderate Modifying factors: None REVIEW OF SYSTEMS: Constitutional: See HPI EENTM: denies: blurred vision, double vision, nose congestion Respiratory: denies: cough, shortness of breath Cardiac: denies: chest pain, irregular heart rate, lightheadedness, palpitations Gastrointestinal/Abdominal: denies: abdominal pain, diarrhea, nausea, vomiting, blood streaked stools Genitourinary: denies: dysuria, frequency, hematuria, pain Musculoskeletal: denies: joint pain, muscle pain Skin: See HPI Neurological: denies: headache, numbness, paresthesia, tingling, dizziness, weakness Hematologic/Lymphatic: denies: blood clots, easy bleeding, easy bruising Immunologic/allergic: denies: HIV/AIDS, transplant 10 systems reviewed and negative except as noted EXAM: GENERAL: Well-appearing, well-nourished and in no acute distress. HEAD: Atraumatic, normocephalic. EYES: Pupils equal round and reactive to light, extraocular movements intact, sclera anicteric, conjunctiva are normal. No conjunctival involvement. ENT: TMs normal, nares patent, oropharynx clear without exudates. No visible mucosal involvement. Does appear to be Koplik's spots, primary no palpable adenopathy. Moist mucous membranes. No strawberry tongue. NECK: Normal range of motion, supple without lymphadenopathy or JVD. LUNGS: Breath sounds clear to auscultation bilaterally and equal. No wheezes rales or rhonchi. HEART: Regular rate and rhythm without murmurs, rubs or gallops. ABDOMEN: Soft, nontender, normoactive bowel sounds. No guarding, no rebound. No masses appreciated. BACK: No CVA tenderness, no spinal tenderness, step-offs or deformities EXTREMITIES: Normal range of motion, no pitting or edema. No clubbing or cyanosis. NEUROLOGICAL: Cranial nerves II through XII grossly intact. Normal speech, normal gait. 5/5 strength, normal movement in all extremities, normal sensation , normal reflexes PSYCH: Normal mood, normal affect. SKIN: Diffuse morbilliform rash, no bruising, no bowl, no sloughing. No ulceration. Sandpapery. Primarily on trunk. Source: Patient Exam Limitations: No limitations - Personal History LMP (Females 10-55): 22-28 Days Ago Current Tetanus Diphtheria and Acellular Pertussis (TDAP): Yes - Medical/Surgical History Hx Asthma: No Hx Chronic Respiratory Disease: No Hx Diabetes: No Hx Cardiac Disease: No Hx Renal Disease: No Hx Cirrhosis: No Hx Alcoholism: No Hx HIV/AIDS: No Hx Splenectomy or Spleen Trauma: No Other PMH: R SHOULDER RECONST, R ANKLE SX 2012, OPTIC NERVE SX PATRICIA 2010, TONSIL - Family History Significant Family History: No pertinent family hx - Social History Smoking Status: Never smoked Alcohol Use: None Constitutional: Initial Vital Signs Temperature (C) 37.1 C 05/06/18 18:42 Heart Rate 64 05/06/18 18:42 Respiratory Rate 16 05/06/18 18:42 Blood Pressure 115/86 H 05/06/18 18:42 O2 Sat (%) 96 05/06/18 18:42 O2 Delivery Mode Room Air Allergies/Adverse Reactions: No Known Allergies Allergy (Verified 05/06/18 18:40) Home Medications: Medication Instructions Recorded diphenhydrAMINE [Benadryl 50 MG 50 mg PO Q4-6PRN PRN #30 cap 05/06/18 (OTC)] predniSONE 60 mg PO DAILY #9 tab 05/06/18 Medical Decision Making ED Course/Re-evaluation: The patient has a morbilliform rash that is nonspecific. Will test for strep throat said she has had a sore throat recently. Could however represent multiple other viruses including varicella, roseola, parvovirus, measles or rubella. She does appear to have koplik spots, however She has been vaccinated. Also the rash does not involve her palms or soles. Could also represent pityriasis especially considering the initial patch which could be considered a herald patch although it does not have the classic Dudley tree distribution. Could be a drug eruption however patient states that she has had Zofran and Toradol previously without significant reactions. She did also receive IV contrast on the however this was 3 days before her symptoms began. She is not toxic-appearing and does not have a headache or neck stiffness which would concern me for meningococcus. She is nontoxic-appearing. No retained foreign bodies or recent wounds. Patient's rapid strep is negative. Will send for cultures. She is reassured by this. She is well appearing. Discussed continued treatment and indications for returning. Rash unchanged. Differential Diagnosis: Partial list of the Differential diagnosis considered include but were not limited to; drug eruption, viral exanthem, measles and although unlikely based on the history and physical exam, I also considered erythema migrans, Veronica Mendez's, meningococcus, lupus, toxic shock. I discussed these differential diagnoses and the plan with the patient as well as the usual and expected course. The patient understands that the diagnosis is provisional and that in medicine we are not always correct and that further workup is often warranted. Usual and customary warnings were given. All of the patient's questions were answered. The patient was instructed to return to the emergency department should the symptoms at all worsen or return, otherwise to followup with the physician as we discussed. - Data Points Medications Given: Discontinued Medications Diphenhydramine HCl (Benadryl) 50 mg PO EDNOW ONE Stop: 05/06/18 19:24 Last Admin: 05/06/18 19:26 Dose: 50 mg Prednisone (Prednisone) 60 mg PO EDNOW ONE Stop: 05/06/18 19:24 Last Admin: 05/06/18 19:27 Dose: 60 mg Point of Care Test Results: Strep Strep Throat Swab Collection 05/06/18 Date Strep Throat Swab Swab 19:10 Collection Time Strep Result Not Detected Departure - Departure Disposition: Home, Routine, Self-Care Clinical Impression: Morbilliform rash Condition: Fair Instructions: Viral Exanthem (ED) Referrals: Marleny Mcmahan MD [Primary Care Provider] - As per Instructions Prescriptions: diphenhydrAMINE [Benadryl 50 MG (OTC)] 50 mg PO Q4-6PRN PRN #30 cap PRN Reason: Itching predniSONE 60 mg PO DAILY #9 tab
[2018-05-06 21:01] VITALS: BP 118/67
== END 2018-05-06 20:50 | disposition home or self-care (01) ==
LOC: CED 18:24
DX: R21 Rash and other nonspecific skin eruption (principal)
CPT/HCPCS: 99283-ER; J7512

== ENCOUNTER 2018-05-09 10:11 | Emergency (ER) | payer MEDICAID ==
--- NOTE | 2018-05-09 11:49 | EDPHY ---
H & P Time Seen by Provider: 05/09/18 10:13 HPI/ROS: CHIEF COMPLAINT: Rash HISTORY OF PRESENT ILLNESS: Patient presents with rash. She was seen by Dr. Morelos on May 06 for same. She states today the rash is generally improving but now she feels "disconnected" and she states that her skin feels "numb". On the she was put on prednisone, 60 mg a day. It was recommended she take diphenhydramine at night. She has been using these medications as prescribed. She states the rash started the day after she was given Toradol and Zofran for abdominal pain in this emergency department. She denies fevers, angioedema, wheezing or shortness of breath. The rash started in the lower chest/epigastric region and has spread to most of her torso. Now it is more apparent on the legs, back and buttocks. Rash is not painful and sometimes pruritic. REVIEW OF SYSTEMS: Constitutional: No fever, no chills. Eyes: No discharge. ENT: No sore throat. Cardiovascular: No chest pain, no palpitations. Respiratory: No cough, no shortness of breath. Gastrointestinal: No nausea or vomiting. Genitourinary: No dysuria. Musculoskeletal: No back pain. Skin: Per HPI Neurological: No headache. General Appearance: Alert, no distress. Eyes: Pupils equal and round no pallor or injection. ENT, Mouth: Mucous membranes moist. No oral lesions. No cervical lymphadenopathy. Respiratory: There are no retractions, lungs are clear to auscultation. Cardiovascular: Regular rate and rhythm. Gastrointestinal: Abdomen is soft and nontender, no masses, bowel sounds normal. No inguinal lymphadenopathy. Neurological: Cranial nerves intact, normal strength and sensation all 4 extremities, no clonus. Skin: Warm and dry, diffuse erythematous macular non raised rash. Blanchable. Most noticeable on both lower extremities. Some areas where rashes confluent (erythema only). Spares palms and soles. Musculoskeletal: Neck is supple nontender. Extremities are symmetrical, full range of motion, no edema. Psychiatric: Patient is oriented X 3, there is no agitation. 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 Right shoulder reconstruction. Right ankle surgery. Tonsillectomy. Social history: Denies tobacco, drugs, EtOH. Smoking Status: Never smoked Constitutional: Initial Vital Signs Temperature (C) 37 C 05/09/18 10:23 Heart Rate 68 05/09/18 10:23 Respiratory Rate 14 05/09/18 10:23 Blood Pressure 115/75 05/09/18 10:23 O2 Sat (%) 98 05/09/18 10:23 O2 Delivery Mode Room Air Allergies/Adverse Reactions: No Known Allergies Allergy (Verified 05/09/18 10:22) Home Medications: Medication Instructions Recorded diphenhydrAMINE [Benadryl 50 MG 50 mg PO Q4-6PRN PRN #30 cap 05/06/18 (OTC)] predniSONE 60 mg PO DAILY #9 tab 05/06/18 Medical Decision Making ED Course/Re-evaluation: Reviewed comprehensive metabolic panel and CBC with patient. Essentially will all within normal limits with only minor irregularities. Differential Diagnosis: Differential diagnosis includes but is not limited to drug rash, mastocytosis, viral exanthem. Please see Dr. Morelos's detailed discussion of her previous visit (05/06) for further diagnoses considered. On my evaluation suspect this is a drug rash related to her Toradol use. Further history determined the patient had never had this medication before and the rash began the day after Toradol injection. Rash is generally improving so low suspicion for progression to toxic epidermal necrolysis or Veronica-Mendez syndrome. Inconsistent with measles and had her titer checked last year. No systemic symptoms to suspect other infectious cause. No evidence of sensory loss or other neurologic abnormality. Advised a wait and see approach and for patient to complete her prednisone course. She is comfortable with this plan and understands return precautions. Stable for discharge. - Data Points Laboratory Results: 05/09/18 11:19 POC Sodium 143 mEq/L mEq/L (135-145) POC Potassium 3.4 mEq/L mEq/L (3.3-5.0) POC Chloride 105.0 mEq/L mEq/L (97-110) POC Total CO2 27 mEq/L mEq/L (22-31) POC BUN 12 mg/dL mg/dL (7-23) POC Creatinine 0.8 mg/dL mg/dL (0.6-1.0) POC Glucose 84 mg/dL mg/dL (70-100) POC Calcium 9.8 mg/dL mg/dL (8.5-10.4) POC Total Bilirubin 0.9 mg/dL mg/dL (0.1-1.4) POC AST 26 IU/L IU/L (14-46) POC ALT 16 IU/L IU/L (9-52) POC Alk Phosphatase 52 IU/L IU/L (38-126) POC Total Protein 8.0 g/dL g/dL (6.3-8.2) POC Albumin 3.7 g/dL g/dL (3.5-5.0) Point of Care Test Results: CBC CBC Collection Date 05/09/18 CBC Collection Time 11:16 WBC 9.76 RBC 4.67 HGB 14.1 HCT 42.3 PLT 273 Neut # 5.77 Neut 59.1 LYMPH # 3.19 LYMPH 32.7 MCV 90.6 Chemistry 05/09/18 11:19 POC Sodium 143 mEq/L mEq/L (135-145) POC Potassium 3.4 mEq/L mEq/L (3.3-5.0) POC Chloride 105.0 mEq/L mEq/L (97-110) POC Total CO2 27 mEq/L mEq/L (22-31) POC BUN 12 mg/dL mg/dL (7-23) POC Creatinine 0.8 mg/dL mg/dL (0.6-1.0) POC Glucose 84 mg/dL mg/dL (70-100) POC Calcium 9.8 mg/dL mg/dL (8.5-10.4) POC Total Bilirubin 0.9 mg/dL mg/dL (0.1-1.4) POC AST 26 IU/L IU/L (14-46) POC ALT 16 IU/L IU/L (9-52) POC Alk Phosphatase 52 IU/L IU/L (38-126) POC Total Protein 8.0 g/dL g/dL (6.3-8.2) POC Albumin 3.7 g/dL g/dL (3.5-5.0) Comprehensive Metabolic Panel CMP Collection Date 05/09/18 CMP Collection Time 11:16 Departure - Departure Disposition: Home, Routine, Self-Care Clinical Impression: Drug rash Condition: Fair Instructions: Acute Rash (ED) Additional Instructions: Continue with her last dose of prednisone as previously prescribed. Do not take Toradol in the future. Follow up with your primary care physician as needed if symptoms persist and do not hesitate to return to the emergency department for more severe symptoms or other new concerns. Referrals: Marleny Mcmahan MD [Primary Care Provider] - As per Instructions
[2018-05-09 11:58] VITALS: BP 116/75
== END 2018-05-09 11:53 | disposition home or self-care (01) ==
LOC: CED 10:11
DX: L27.0 Generalized skin eruption due to drugs and medicaments taken internally (principal)
CPT/HCPCS: 80053-ER; 99283-ER

== ENCOUNTER → 2018-05-14 | Outpatient (CLI) | payer MEDICAID | LOC: CIMAGING 06:48 ==

== ENCOUNTER 2018-07-29 16:57 | Emergency (ER) | payer MEDICAID ==
--- NOTE | 2018-07-29 17:41 | EDPHY ---
H & P Stated Complaint: 5wks preg- Rt/ Lower abd on and off since Thu. 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 Mild nausea but no vomiting. She is 4 weeks 4 days by dates. No vaginal bleeding or discharge. No dysuria. No back pain. No fever. No history of abdominal surgeries. No diarrhea. Severity: Moderate Modifying factors: None REVIEW OF SYSTEMS: Constitutional: denies: chills, fever, recent illness, recent injury EENTM: denies: blurred vision, double vision, nose congestion Respiratory: denies: cough, shortness of breath Cardiac: denies: chest pain, irregular heart rate, lightheadedness, palpitations Gastrointestinal/Abdominal: See HPI denies: diarrhea, vomiting, blood streaked stools Genitourinary: denies: dysuria, frequency, hematuria, pain Musculoskeletal: denies: joint pain, muscle pain Skin: denies: lesions, rash, jaundice, bruising Neurological: denies: headache, numbness, paresthesia, tingling, dizziness, weakness Hematologic/Lymphatic: denies: blood clots, easy bleeding, easy bruising Immunologic/allergic: denies: HIV/AIDS, transplant 10 systems reviewed and negative except as noted EXAM: GENERAL: Well-appearing, well-nourished and in no acute distress. HEAD: Atraumatic, normocephalic. EYES: Pupils equal round and reactive to light, extraocular movements intact, sclera anicteric, conjunctiva are normal. ENT: TMs normal, nares patent, oropharynx clear without exudates. Moist mucous membranes. NECK: Normal range of motion, supple without lymphadenopathy or JVD. LUNGS: Breath sounds clear to auscultation bilaterally and equal. No wheezes rales or rhonchi. HEART: Regular rate and rhythm without murmurs, rubs or gallops. ABDOMEN: Soft, nontender, normoactive bowel sounds. No guarding, no rebound. No masses appreciated. BACK: No CVA tenderness, no spinal tenderness, step-offs or deformities EXTREMITIES: Normal range of motion, no pitting or edema. No clubbing or cyanosis. NEUROLOGICAL: Cranial nerves II through XII grossly intact. Normal speech, normal gait. 5/5 strength, normal movement in all extremities, normal sensation , normal reflexes PSYCH: Normal mood, normal affect. SKIN: Warm, dry, normal turgor, no visible rashes or lesions. Source: Patient Exam Limitations: No limitations - Personal History LMP (Females 10-55): Over 28 Days Ago EDC: 06/27/18 Current Tetanus Diphtheria and Acellular Pertussis (TDAP): Yes Tetanus Vaccine Date: unsure - Medical/Surgical History Hx Asthma: No Hx Chronic Respiratory Disease: No Hx Diabetes: No Hx Cardiac Disease: No Hx Renal Disease: No Hx Cirrhosis: No Hx Alcoholism: No Hx HIV/AIDS: No Hx Splenectomy or Spleen Trauma: No Other PMH: Ovarian cyst, R SHOULDER RECONST, R ANKLE SX 2012, OPTIC NERVE SX PATRICIA 2010, TONSILLECTOMY/ BI/PVC's - Family History Significant Family History: No pertinent family hx - Social History Smoking Status: Never smoked Alcohol Use: Sober Drug Use: None Constitutional: Initial Vital Signs Temperature (C) 37 C 07/29/18 17:06 Heart Rate 65 07/29/18 17:06 Respiratory Rate 18 07/29/18 17:06 Blood Pressure 131/71 H 07/29/18 17:06 O2 Sat (%) 96 07/29/18 17:06 O2 Delivery Mode Room Air Allergies/Adverse Reactions: No Known Allergies Allergy (Verified 05/09/18 10:22) Home Medications: Medication Instructions Recorded NK [No Known Home Meds] 07/29/18 Medical Decision Making - Diagnostics Imaging Results: Imaging Impressions Abdomen Ultrasound 07/29/18 17:18 Impression: Negative limited right lower quadrant ultrasound, specifically, there are no secondary findings to support a clinical diagnosis of acute appendicitis. Results called and discussed with STEPAN DELEON M.D. on 07/29/2018 at 18:22. Obstetrics Ultrasound 07/29/18 17:19 Impression: 1. An intrauterine gestation is not identified possibly related to the early estimated age of approximately 5 weeks. Follow-up is recommended. 2. Hypoechoic structure associated with the right ovary may represent an evolving corpus luteal cyst with follow-up suggested. Results called and discussed with Stepan Deleon M.D. on 07/29/2018 at 18:30. Imaging: Discussed imaging studies w/ call circuit worker Radiologist ED Course/Re-evaluation: According to our medical record the patient is blood type A negative. Currently not bleeding. 6:30 p.m. The patient right lower quadrant ultrasound is reassuring. Her pelvic ultrasound does reveal a complex right ovarian cyst which could be responsible for her pain. We did not see an IUP at this point but it may be too early. Will have her follow up with OBGYN in 48 hr. I have paged OBGYN on- call for follow-up. Quant is still pending. 6:40 p.m. I spoke with Dr. Chi on the phone who agrees with this plan and will follow up with the patient tomorrow or Thursday. Differential Diagnosis: Partial list of the Differential diagnosis considered include but were not limited to; ovarian cyst, appendicitis, ectopic and although unlikely based on the history and physical exam, I also considered kidney stone , urinary tract infection. I discussed these differential diagnoses and the plan with the patient as well as the usual and expected course. The patient understands that the diagnosis is provisional and that in medicine we are not always correct and that further workup is often warranted. Usual and customary warnings were given. All of the patient's questions were answered. The patient was instructed to return to the emergency department should the symptoms at all worsen or return, otherwise to followup with the physician as we discussed. - Data Points Laboratory Results: 07/29/18 17:40 POC Sodium 142 mEq/L mEq/L (135-145) POC Potassium 4.1 mEq/L mEq/L (3.3-5.0) POC Chloride 104.0 mEq/L mEq/L (97-110) POC Total CO2 26 mEq/L mEq/L (22-31) POC BUN 12 mg/dL mg/dL (7-23) POC Creatinine 1.0 mg/dL mg/dL (0.6-1.0) POC Glucose 96 mg/dL mg/dL (70-100) POC Calcium 9.6 mg/dL mg/dL (8.5-10.4) POC Total Bilirubin 0.9 mg/dL mg/dL (0.1-1.4) POC AST 27 IU/L IU/L (14-46) POC ALT 24 IU/L IU/L (9-52) POC Alk Phosphatase 39 IU/L IU/L (38-126) POC Total Protein 7.4 g/dL g/dL (6.3-8.2) POC Albumin 4.1 g/dL g/dL (3.5-5.0) Point of Care Test Results: CBC CBC Collection Date 07/29/18 CBC Collection Time 17:49 WBC 11.07 RBC 4.73 HGB 14.1 HCT 42.1 PLT 271 Neut # 7.28 Neut 65.7 LYMPH # 23.3 LYMPH 2.58 MCV 89 Chemistry 07/29/18 17:40 POC Sodium 142 mEq/L mEq/L (135-145) POC Potassium 4.1 mEq/L mEq/L (3.3-5.0) POC Chloride 104.0 mEq/L mEq/L (97-110) POC Total CO2 26 mEq/L mEq/L (22-31) POC BUN 12 mg/dL mg/dL (7-23) POC Creatinine 1.0 mg/dL mg/dL (0.6-1.0) POC Glucose 96 mg/dL mg/dL (70-100) POC Calcium 9.6 mg/dL mg/dL (8.5-10.4) POC Total Bilirubin 0.9 mg/dL mg/dL (0.1-1.4) POC AST 27 IU/L IU/L (14-46) POC ALT 24 IU/L IU/L (9-52) POC Alk Phosphatase 39 IU/L IU/L (38-126) POC Total Protein 7.4 g/dL g/dL (6.3-8.2) POC Albumin 4.1 g/dL g/dL (3.5-5.0) Urine Collection Date 07/29/18 Collection Time 17:26 HCG Results Positive Urine Dip Collection Date 07/29/18 Collection Time 17:20 Specific [place] (1.002-1.030) 1.020 PH (5.0-7.5) 6.0 Leukocytes (Negative) Negative Nitrites (Negative) Negative Protein (Negative) Negative Glucose (Negative) Negative Ketones (Negative) Negative Urobilnogen (0.2-1.0 EU) 0.2 Bilirubin (Negative) Negative Blood (Negative) Negative Departure - Departure Disposition: Home, Routine, Self-Care Clinical Impression: Right ovarian cyst Qualifiers: Weeks of gestation: less than 8 weeks Qualified Code(s): Z3A.01 - Less than 8 weeks gestation of Condition: Fair Instructions: (ED), Ovarian Cyst (ED) Referrals: NONE *PRIMARY CARE P,. [Primary Care Provider] - As per Instructions Anju Grijalva DO [Doctor of Osteopathy] - 1-2 days without fail
[2018-07-29 18:55] VITALS: BP 110/73
== END 2018-07-29 18:53 | disposition home or self-care (01) ==
LOC: CED 16:57
DX: N83.291 Other ovarian cyst, right side (principal); Z3A.01 Less than 8 weeks gestation of pregnancy
CPT/HCPCS: 76705-PO; 80053-ER; 81025-ER; 85025-QW-ER; 99284-ER

== ENCOUNTER 2018-08-29 00:22 | Emergency (ER) | payer MEDICAID | END 2018-08-29 01:41 | disposition home or self-care (01) | LOC: CED 00:22 ==